=== PATIENT | male | born 1990 | race Caucasian/White ===

== ENCOUNTER 2022-02-17 17:35 | Emergency (ER) | payer OTHER, SELFPAY ==
--- NOTE | ~2022-02-17 | XR_ITS ---
EXAM: XR knee RT min 4V HISTORY: PAIN TO RT KNEE X 1 DAY. UNSURE HOW HE HURT IT. COMPARISON: None available FINDINGS: Lateral view is limited by overpenetration. Normal mineralization. No fracture or dislocati on. No lytic or blastic lesion. No large joint effusion. IMPRESSION: No acute osseous finding detected. Reviewed, dictated and finalized at location K.
[2022-02-17 17:50] VITALS: BP 150/105; PULSE 84; RESP 20; TEMP 37.6; O2SAT 100
--- NOTE | 2022-02-17 18:02 | ED.EXTPRO ---
HPI - Extremity Problem General Chief complaint: Extremity Problem,Nontraumatic Stated complaint: Right Knee Swelling/Pain Time Seen by Provider: 02/17/22 18:15 Source: patient and RN notes reviewed Mode of arrival: ambulatory Limitations: no limitations History of Present Illness HPI Narrative: 31-year-old male presents with concern for right knee pain, swelling. He denies known injury, however reports he was drinking alcohol and not sure if he injured himself. He reports swelling which improved with compression. He denies warmth, redness, bruising, open skin. Denies fever, body aches, chills. Reports pain with flexion that improved when swelling went down MD Complaint: extremity pain Review of Systems Review of Systems: CONSTITUTIONAL: Denies malaise, chills, sweats, or fever. SKIN: Denies rash or itching, open skin, laceration, abrasion, redness, warmth MUSCULOSKELETAL: Reports right knee pain and swelling NEUROLOGIC: Denies numbness, weakness All systems reviewed & are unremarkable except as noted in HPI and below PMFSH Comments At time of signature, agree with nursing past medical, surgical, social and family history. There is no relevant family history pertinent to the presenting complaint Exam Narrative: GENERAL: Well-appearing, well-nourished, and in no acute distress. HEAD: Normocephalic, atraumatic. EYES: PERRLA, conjunctivae clear NECK: Supple. CHEST: Speaks in full sentences. No respiratory distress. HEART: Regular rate and rhythm. Normal and equal peripheral pulses. EXTREMITIES: Right knee has normal strength and sensation, normal range of motion. Minimal edema, no ecchymosis. 5/5 strength with knee flexion and extension. Normal sensation with sensitivity to light touch and pain. No point tenderness. No open wounds, no skin tenting, no devitalized tissue or atrophy, no trophic changes, no obvious deformity, alignment normal, nearby joints and structures intact. Distal pulses palpable and equal bilaterally, skin warm, dry, pink. Capillary refill less than 3 seconds. Lever test negative SKIN: Warm, dry, no rash. NEURO: Alert and oriented x3. PSYCH: Normal mood and affect Course Course Emergency Course: Patient is aware of diagnosis, understands and agrees to treatment plan. Anticipatory guidance given. Patient agrees to follow-up as directed and is aware of reasons to seek care at the emergency department. Portions of this record may have been created with voice recognition software Level of Care: Express Care Visit Vital Signs Vital signs: Vital Signs Temperature 99.7 F H 02/17/22 17:50 Pulse Rate 84 02/17/22 17:50 Respiratory Rate 20 02/17/22 17:50 Blood Pressure 150/105 H 02/17/22 17:50 Pulse Oximetry 100 02/17/22 17:50 Temperature 99.7 F H 02/17/22 17:50 Pulse Rate 84 02/17/22 17:50 Respiratory Rate 20 02/17/22 17:50 Blood Pressure 150/105 H 02/17/22 17:50 Pulse Oximetry 100 02/17/22 17:50 Reviewed. MDM - Extremity (Nontraumatic) MDM Narrative Medical decision making narrative: Patients pain is consistent with musculoskeletal etiology. No signs of neurological or vascular compromise on exam. Compartments and tissues are soft without signs of compartment syndrome. Pain is felt appropriate for further evaluation on an outpatient basis. Critical Care Time Critical Care Time Critical Care Time: No Discharge Plan Discharge Clinical Impression: Acute knee pain Qualifiers: Laterality: right Qualified Code(s): M25.561 - Pain in right knee Patient Disposition: Home, Self-Care Condition: Stable Instructions: Knee Pain (ED) Additional Instructions: Your x-ray looks normal Avoid activities that cause pain until the pain subsides. Ice to the area 20-30 minutes 4-6 times a day Elevate above heart Elastic wrap or orthopedic splint as directed for comfort for the next 5-7 days Tylenol for lesser pain Ibuprofen regularly for the next 2-3 days for the inflammatio
== END 2022-02-17 18:58 | disposition home or self-care (01) ==
PROVIDERS: Emergency Provider Nurse Practitioner
DX: M25.561 Pain in right knee (principal)
CPT/HCPCS: 73564; 99213; G0463